=== PATIENT | female | born 1990 | race Caucasian/White ===

== ENCOUNTER → 2022-05-19 | Outpatient (CLI) | payer OTHER ==
[2022-05-19 13:12] LABS: HEMATOCRIT 43.4 % (37.0-47.0); HEMOGLOBIN 14.7 g/dL (12.5-16.0); MEAN CELL VOLUME 84 fl (78-100); MEAN CORPUSCULAR HEMOGLOBIN 29 pg (27-31); MEAN CORPUSCULAR HGB CONC 34 g/dL (33-37); MEAN PLATELET VOLUME 9.5 fl (7.4-10.4); PLATELET COUNT 480 K/mm3 (130-400); RED BLOOD COUNT 5.14 M/mm3 (4.10-5.30); WHITE BLOOD COUNT 13.5 K/mm3 (4.8-10.8)
[2022-05-19 13:50] LABS: D-DIMER 0.09 mg/L FEU (0.15-0.50)
[2022-05-19 14:31] LABS: LYMPHOCYTE 41 % (20-51); MONOCYTE 5 % (3-10); NEUTROPHILS 49 % (42-75)
== END ==
LOC: LAB 12:53
PROVIDERS: Family Medicine
DX: R06.02 Shortness of breath (principal)